=== PATIENT | male | born 1970 | race Caucasian/White ===

== ENCOUNTER → 2018-09-25 | Outpatient (CLI) | payer BC ==
--- NOTE | 2018-09-25 16:02 | KCIC ---
Summation: MRI of the right shoulder without contrast HISTORY: History of right shoulder pain, history of right shoulder fracture COMPARISON: None available Technique: Multiplanar, multisequence MR imaging of the right shoulder were performed without contrast. Sagittal obliques could not be obtained as patient is too claustrophobic. FINDINGS: The long head of the biceps tendon within the bicipital groove. The attachment of the long head the biceps tendon to the superior labral anchor grossly appears intact. Increased signal identified in the undersurface fibers of the supraspinatus tendon likely high-grade partial thickness undersurface tear at its attachment to the greater tuberosity. Moderate increased signal identified in the supraspinatus, interspinous tendon likely tendinosis. The attachment of the subscapularis, infraspinatus tendon grossly appears intact. The visualized labrum grossly appears unremarkable. Moderate degenerative changes identified in the acromioclavicular joint. Examination limited due to motion artifact. The acromion is type II. The muscle bulk grossly appears unremarkable. There is fraying of cartilage identified in the glenohumeral joint. Mild obscuration of fat and due to interval. IMPRESSION: 1. High-grade partial-thickness tear supraspinatus tendon. 2. Moderate degenerative changes glenohumeral joint, acromioclavicular joint. Chondromalacia shoulder joint. 3. Tendinosis of the rotator cuff. Electronically signed by: Lionel Johnson MD (09/25/2018 3:59 PM) [id number]
== END | disposition home or self-care (01) ==
LOC: KCIC MRI 14:47
PROVIDERS: ATTEND Orthopaedic Surgery
DX: S46.011A Strain of muscle(s) and tendon(s) of the rotator cuff of right shoulder, initial encounter (principal); S42.144A Nondisplaced fracture of glenoid cavity of scapula, right shoulder, initial encounter for closed fracture; M19.011 Primary osteoarthritis, right shoulder; M94.211 Chondromalacia, right shoulder; X58.XXXA Exposure to other specified factors, initial encounter; Y93.89 Activity, other specified; Y92.89 Other specified places as the place of occurrence of the external cause; Y99.8 Other external cause status
CPT/HCPCS: 73221